=== PATIENT | female | born 1950 | race Caucasian/White ===

== ENCOUNTER 2019-03-12 06:45 | Inpatient (IN) | payer OTHER ==
[~2019-03-12] VITALS: Ht 167.6 cm; Wt 90.3 kg
[2019-03-12 06:54] VITALS: Ht 167.6 cm; Wt 90.3 kg
--- NOTE | 2019-03-12 07:05 | NUR ---
PT BIB [facility] FROM [facility] WHERE PT WAS ON A VOLUNTARY HOLD. PER MEDICS APPROX 1 HR AGO PT NOTICED TOUNGE SWELLING AND DECIDE TO CALL 911. MEDICS REPORT PT WAS GIVEN 50MG OF BENADRYL IM FROM STAFF AT [facility]. PT REPORTS THAT SHE TOOK A COUGH DROP SHORTLY BEFORE SHE NOTICE THE TOUNGE SWELLING. PT DENIES ANY SOB OR OTHER SYMPTOMS. PT IS TALKING IN A SLURRED SPEECH BUT IN FULL AND COMPLETE SENTENCES. PT LUNG SOUNDS ARE CLEAR TO AUSCUALTION. PT ALSO REPORTING HIP PAIN THAT STARTED ALONG WITH HER TOUNGE SWELLING. PT RATES HER PAIN A 6/10. PT IS A/O X4. RESP ARE E/U. NO ACUTE DISTRESS NOTED.
--- NOTE | 2019-03-12 07:21 | NUR ---
PT RECLINING ON GURNEY WITH NAD. PT TONGUE NOTED WITH SWELLING. PT IS AWAKE AND ALERT. BREATHING EVEN AND UNLABORED. PT HOOKED UP TO FULL MONITORS, WILL CONTINUE TO MONITOR.
[2019-03-12] MEDS ORDERED: TRILEPTAL300 MG PO ×2 (08:21→21:23)
[2019-03-12] MEDS ORDERED: ZESTRIL20 MG PO (08:21)
[2019-03-12] MEDS ORDERED: BRILINTA60 MG PO (08:21)
[2019-03-12] MEDS ORDERED: METOPROLOL SUCC50 M2 PO (08:22)
[2019-03-12] MEDS ORDERED: LASIX20 MG PO ×2 (08:22→21:23)
[2019-03-12] MEDS ORDERED: NATURE'S BLEND500 MG PO (08:22)
[2019-03-12] MEDS ORDERED: NEU300 PO (08:23)
[2019-03-12] MEDS ORDERED: ASPIR 8181 MG PO (08:23)
[2019-03-12] MEDS ORDERED: COLACE100 MG PO (08:24)
[2019-03-12 08:26] LABS: BASOPHIL % 0.1 % (0-2)
[2019-03-12 08:27] LABS: PLATELET COUNT 439 x10^3mcL (130-400); RED CELL DISTRIBUTION WIDTH 16.2 % (11.5-14.5)
[2019-03-12 08:40] LABS: ALKALINE PHOSPHATASE 91 U/L (46-116); ALT/SGPT 25 U/L (14-59); AST/SGOT 26 U/L (15-37); CALCIUM 8.3 mg/dL (8.5-10.1); CARBON DIOXIDE 25.2 mmol/L (21-32); CHLORIDE SERUM 91 mmol/L (98-107); CREATININE SERUM 0.6 mg/dL (0.6-1.0); GFR1 > 60 mL/min; GLUCOSE SERUM 88 mg/dL (74-106); POTASSIUM SERUM 4.2 mmol/L (3.5-5.1)
[2019-03-12 08:45] LABS: ALBUMIN 3.2 g/dL (3.4-5.0); SODIUM SERUM 123 mmol/L (136-145); TOTAL PROTEIN, SERUM 6.1 g/dL (6.4-8.2)
--- NOTE | 2019-03-12 08:45 | NUR ---
PT STATES SHE FEELS A LITTLE BIT BETTER. TONGUE IS STILL NOTED TO BE SWOLLEN, BREATHING EVEN AND UNLABORED. PT REMAINS HOOKED UP TO FULL MONITORS,
--- NOTE | 2019-03-12 09:10 | NUR ---
PT WHEELED TO THE RESTROOM WITHNAD
--- NOTE | 2019-03-12 09:21 | NUR ---
PT BACK FROM BATHROOM WITH NAD. PT HOOKED BACK UP TO FULL MONITORS, WILL CONTINUE TO MONITOR.
--- NOTE | 2019-03-12 10:56 | NUR ---
REPORT CALLED TO NURSE PT IS GOING TO ROOM 202 B PT IS A/AX4
--- NOTE | 2019-03-12 10:57 | NUR ---
I GAVE REPORT TO CECE
--- NOTE | 2019-03-12 11:04 | NUR ---
REPORT CALLED FROM ED NURSE MACHO. PATIENT BEING ADMITTED TO TELE TO ROOM 202B
--- NOTE | 2019-03-12 11:10 | NUR ---
PATIENT BROUGHT UP FROM ED BY NURSE AND TECH ON [facility]. 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 ASSISTED PATIENT IN TRANSFERING TO HOSPITAL BED. TELE 12 PLACED ON PATIENT SHOWING NSR. PATIENT WAS ADMITTED TO [facility] FROM [facility] IN [place]. PATIENT WAS FEELING DEPRESSED AND SUICIDAL, NO LONGER FEELS THAT WAY. AT [facility] SHE WAS GIVEN LISINOPRILL AND DEVELOPED FACIAL, NECK AND TONGUE SWELLING EARLY THIS MORNIGN. PATIENT STATES THAT SHE HAS TAKEN LISINOPRIL BEFORE WITHOUT THIS HAPPENING AND THAT SWELLING IS IMPROVED. SLIGHT WEEHZE IN BILATER UPPER LOBES OF LUNGS, 99% SPO2 ON ROOM AIR, BOWEL SOUNDS ACTIVE WITH LAST BM YESTERDAY, FORMED. VOIDS FREELY. GENERALIZED WEAKNESS, NEEDING ASSITANCE TO AMBULATE, SKIN INTACT, NO PAIN AT HIS TIME. 24G IV SALINE LOCKED TO LEFT HAND, PATIENT SODIUM WAS 123 IN ED, 1L NS BOLUS GIVEN. CALM AND COOPERATIVE AT THIS TIME ORRIENTED PATIENT TO ROOM AND CALL LIGHT SYSTEM, INSTRUCTED TO USE CALL LIGHT BEFOER ATTEMPTING TO GET OUT OF BED. PATIENT VERBALIZED UNDERSTANDING. SCD AT BEDSIDE. MRSA SWAB TAKEN.
[2019-03-12 11:38] VITALS: BP 145/71
--- NOTE | 2019-03-12 13:15 | NUR ---
ASSISTED PATIENT TO AMBULATE TO BEDSIDE COMMODE. GAIT STEADY BUT SLOW. CALL LIGHT WITHIN REACH
--- NOTE | 2019-03-12 14:32 | NUR ---
SPOKE WITH PHARMACIST ABOUT ORDERS FOR PATIENT. ADVISED PHARMACIST TO CONTACT DR FOR CLARIFICATION OF DOSE FOR EPI. ORDER FOR 1MG.
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
--- NOTE | 2019-03-12 16:26 | NUR ---
RT CAME TO PATIENT AND ADMINISTERD BREATHING TREATMENT. PATIETN STATING SHE FEELS BETTER AFTER TREATMENT. ASSSITED PATIENT TO SIT HIGH IN BED TO EASE OF BREATHING. CALL LIGHT WITHIN REACH
[2019-03-12 16:28] VITALS: BP 144/69
[2019-03-12 17:01] VITALS: BP 145/71
--- NOTE | 2019-03-12 19:30 | NUR ---
ENDORSED CARE TO NIGHT NURSE. ASSITED PATIENT TO SIT UP IN BED AND ENCOURAGED TO COUGH TO TRY AND CLEAR CONGESTION.
--- NOTE | 2019-03-12 19:40 | NUR ---
REC'D PT FROM DAY NURSE. PT RESTING IN BED. AAOX3. REORIENTED TO AGE (OFF BY 1 YEAR). SPEECH CLEAR, FOLLOWS COMMANDS. TELE 12. DENIES CP, DIZZINESS, OR PALPITATIONS. DENIES RESP DISTRESS OR SOB. BREATHING EVEN/UNLABORED ON RA. PT ADM FOR ANGIOEDEMA. NO SWELLING TO NECK, FACE OR TONGUE AT THIS TIME. RT PROTOCOL. ABD SOFT/ROUND. DENIES ABD PAIN, TENDERNESS, OR N/V. VOIDING FREELY. MILD GEN WEAKNESS. ABLE TO MOVE ALL EXTREMITIES. C/O LOWER BACK PAIN 9/10, SHARP. WILL MEDICATION. IV TO LH PATENT AND INFUSING, SITE WNL. DENIES DEPRESSION OR SI AT THIS TIME. CALL LIGHT WITHIN REACH, BED AT LOWEST POSITION. WILL CONTINUE TO MONITOR.
[2019-03-12 20:20] VITALS: BP 128/58
[2019-03-12] MEDS ORDERED: SEROQUEL100 MG PO (21:20)
[2019-03-12] MEDS ORDERED: MASON NATURAL1000 IU PO (21:23)
--- NOTE | 2019-03-12 21:25 | NUR ---
REC'D CALL FROM [facility]. INFORMED ME THAT PT'S BELONGINGS IS STILL AT [facility]. BED CURRENTLY NOT AVAILABLE. REC'D PT'S MED LIST- UPDATED. ONLY CONTACT NUMBER FROM [facility] WAS HER FRIEND, PAOLA [phone]. SPOKE TO DR. WHITE AND INQUIRED IF SHE WOULD LIKE TO RESTART PT'S PSYCH AND SZ MEDS.
[2019-03-12 21:52] LABS: microscopic required? NO
[2019-03-12 22:04] LABS: UA SPECIFIC GRAVITY 1.015 (1.005-1.035); urine erythrocyte NEGATIVE (NEGATIVE)
[2019-03-12 22:16] LABS: AMPHETAMINE QUAL UR NONE DETECTED (See below)
--- NOTE | 2019-03-13 02:06 | NUR ---
PT RESTING IN BED WITH EYES CLOSED. SNORING QUIETLY. NO SIGNS OF DISTRESS OR PAIN NOTED. BREATHING EVEN/UNLABORED ON RA. CALL LIGHT WITHIN REACH, BED AT LOWEST POSITION. WILL CONTINUE TO MONITOR.
--- NOTE | 2019-03-13 05:37 | NUR ---
PT RESTING IN BED WITH EYES CLOSED. BREATHING EVEN/UNLABORED ON RA. AWAKENS WITH VERBAL STIMULI. DENIES PAIN AT THIS TIME. NO SIGNIFICANT CHANGES DURING SHIFT. CALL LIGHT WITHIN REACH, BED AT LOWEST POSITION, BED ALARM ON. WILL CONTINUE TO MONITOR.
[2019-03-13 06:12] VITALS: BP 107/57
[2019-03-13 06:35] LABS: BASOPHIL % 0.4 % (0-2); PLATELET COUNT 363 x10^3mcL (130-400)
[2019-03-13 06:56] LABS: RED CELL DISTRIBUTION WIDTH 16.1 % (11.5-14.5)
[2019-03-13 08:45] VITALS: BP 148/68
[2019-03-13 09:01] LABS: CREATININE SERUM 0.7 mg/dL (0.6-1.0); GFR1 > 60 mL/min; MAGNESIUM 1.8 mg/dL (1.8-2.4)
[2019-03-13 09:09] LABS: CARBON DIOXIDE 19.5 mmol/L (21-32); CHLORIDE SERUM 99 mmol/L (98-107); GLUCOSE SERUM 84 mg/dL (74-106); PHOSPHOROUS 2.7 mg/dL (2.5-4.9); SODIUM SERUM 130 mmol/L (136-145)
--- NOTE | 2019-03-13 10:15 | NUR ---
PT AWAKE AND RESTING IN BED. WATCHING TV. BREATHING EVEN/UNLABORED ON RA. NO COMPLAINTS. CALL LIGHT WITHIN REACH, BED AT LOWEST POSITION. WILL CONTINUE TO MONITOR.
--- NOTE | 2019-03-13 12:05 | NUR ---
REC'D DISCHARGE ORDERS. PT'S BELONGINGS ARE STILL AT [facility], AND PT LIVES IN [place]. NO MEANS OF TRANSPORTATION AND NO FAMILY OR FRIENDS WOULD BE ABLE TO PICK HER UP. CHARGE NURSE GIOVANNY MADE AWARE.
[2019-03-13 13:00] VITALS: BP 147/65
--- NOTE | 2019-03-13 13:51 | NUR ---
RECEIVED BEDSIDE REPORT FROM MEG KHANNA. PT SITTING BY BEDSIDE, EATING LUNCH. NO ACUTE RESPIRATORY DISTRESS, PAIN, OR DISCOMFORT NOTED. WILL CONTINUE TO MONITOR.
--- NOTE | 2019-03-13 16:45 | NUR ---
PT C/O ANXIETY AMB VERBALIZATION OF ANXIOUSNESS AND RESTLESSNESS; STATED THAT SHE NORMALLY TAKES XANAX BID AT HOME, UNKNOWN DOSAGE; RELAYED TO DR CASTANEDA, WHO WILL ORDER PRN ANTIANXIETY MED FOR PT. PT DOES NOT HAVE ANY MEANS OF GOING HOME AT THIS TIME; BAG OF BELONGINGS BROUGHT IN BY [employer] DOES NOT HAVE HER CELLPHONE. WILL RELAY TO CN AND CM.
--- NOTE | 2019-03-13 17:24 | NUR ---
PT GIVEN XANAX 0.25MG PO FOR ANXIETY AMB VERBALIZATION OF ANXIOUSNESS, AND RESTLESSNESS. PT CURRENTLY SITTING ON EDGE OF BED, WATCHING TV. PT STATED THAT HER FRIEND WILL COME TO PICK HER UP IN AN HOUR. WILL CONTINUE TO MONITOR.
[2019-03-13 17:38] VITALS: BP 134/65
[2019-03-13 17:42] VITALS: BP 134/65
--- NOTE | 2019-03-13 18:24 | NUR ---
PT SITTING AT EOB, WATCHING TALKING TO FRIEND ON ROOM PHONE. PT A/A/O X 4, CALM, COOPERATIVE TO CARE. NO ACUTE RESPIRATORY DISTRESS, PAIN, OR DISCOMFORT NOTED. PT STATED THAT HER FRIEND SHOULD COME IN ANYTIME SOON TO PICK HER UP TO GO HOME. WILL CONTINUE TO MONITOR.
--- NOTE | 2019-03-13 19:29 | NUR ---
PT GIVEN D/C PACKET; DISCUSSED CURRENT STAY, INCLUDING MEDS, PROCEDURES DONE, AND TEACHINGS RE: ANGIOEDEMA, DIET, AND EXERCISE. PT VERBALIZED UNDERSTANDING. ALL PAPERWORK SIGNED/DATED. ALL ID BANDS REMOVED. TELE # 12 REMOVED AND RETURNED TO TELE STATION. IV REMOVED FROM 24G, SITE NO S/S INFECTION OR BLEEDING. PT TRANSPORTED TO LOBBY VIA W/C, ACCOMPANIED BY CUSTOMER SERVICE DISPATCHER AND PT'S FRIEND. PT A/A/O X 4, CALM, COOPERATIVE. NO ACUTE RESPIRATORY DISTRESS, PAIN, OR DISCOMFORT.
== END 2019-03-13 19:29 | disposition home or self-care (01) | DRG 916 ==
LOC: ED 06:45 → IC 09:21 → DU 09:21 → IC 09:22 → DU 11:01
PROVIDERS: Emergency Medicine; ADMIT General Practice
DX: T78.3XXA Angioneurotic edema, initial encounter (principal); E87.1 Hypo-osmolality and hyponatremia; E44.1 Mild protein-calorie malnutrition; I10 Essential (primary) hypertension; Z86.73 Personal history of transient ischemic attack (TIA), and cerebral infarction without residual deficits; Z90.49 Acquired absence of other specified parts of digestive tract; Y92.89 Other specified places as the place of occurrence of the external cause; E83.51 Hypocalcemia; E87.8 Other disorders of electrolyte and fluid balance, not elsewhere classified; F31.9 Bipolar disorder, unspecified
CPT/HCPCS: 83880; G0378; J0171; J1200; J2405; J2920; J2930; J3490; J7030; Q0092